=== PATIENT | female | born 1940 ===

== ENCOUNTER 2020-07-18 20:32 | Emergency (ER) | payer OTHER ==
[~2020-07-18] VITALS: Ht 152.4 cm; Wt 62.6 kg
[2020-07-18] MEDS ORDERED: ATACAN (21:21)
[2020-07-18] MEDS ORDERED: COREG (21:22)
[2020-07-18] MEDS ORDERED: ACIDO FOLICO (21:22)
[2020-07-18] MEDS ORDERED: TUSNEL DIABETI118 ML PO (23:09)
[2020-07-18] MEDS ORDERED: CLARITIN10 M1 PO (23:09)
[2020-07-18] MEDS ORDERED: ZITHROMAX500 MG PO (23:09)
== END 2020-07-18 23:30 | disposition home or self-care (01) ==
LOC: ER 20:32
DX: B34.9 Viral infection, unspecified (principal); Z03.818 Encounter for observation for suspected exposure to other biological agents ruled out